=== PATIENT | female | born 1995 | race Caucasian/White ===

== ENCOUNTER 2016-05-02 15:53 | Emergency (ER) | payer OTHER ==
--- NOTE | 2016-05-02 16:43 | ED ORDER SUMMARY ---
..... Patient: ERIKA GILL OrderSheet [facility] VisitID: [id number] [address] [place] [address] 20y, F Registration Date/Time: 05/02/2016 ORDER SHEET Weight: 94.8 kg (stated) Allergies: None GENERAL ORDERS: MEDICATION ORDERS: Dilaudid IM 1 mg (HIGH ALERT MEDICATION, NOW) (16:11 05/02/2016 Savita BRIONES) (Ack 16:11 RMarsden R.N.) (16:29 RMarsden R.N.) Phenergan IM 25 mg (HIGH ALERT MEDICATION, NOW) (16:11 05/02/2016 anastasiia BRIONES) (Ack 16:11 RMarsden R.N.) (16:29 RMarsden R.N.) Solu-MEDROL IM 125 mg (NOW) (16:12 05/02/2016 anastasiia BRIONES) (Ack 16:13 RMarsden R.N.) (16:30 RMarsden R.N.) IV FLUIDS: ORDER SHEET NOTES: [Electronically signed by Audra Lanier R.N. (19:04 05/02/2016)] [Electronically signed by Man Fernandez DO (22:04 05/02/2016)] [Electronically locked/signed by Audra Lanier R.N. (19:04 05/02/2016)]
--- NOTE | 2016-05-02 16:43 | ED CLINICAL REPORT ---
Clinical Report - Physicians/Mid Levels [facility] [address] [place] [address] 05/02/2016 15:54 Patient: ERIKA GILL Time Seen: 15:56. Arrived- By private vehicle. Historian- patient and mother. HISTORY OF PRESENT ILLNESS Chief Complaint: SORE THROAT. Post tonsillectomy pain. This started today and is still present. It was gradual in onset and has been waxing/waning. Pain described as severe. The patient has had a sore throat (states hurts too much to swallow pills) with pain upon swallowing. Similar symptoms previously: Recent medical care: The patient was seen recently by a health care provider (had tonsillectomy). REVIEW OF SYSTEMS No fever, cough, difficulty breathing, chest pain or nausea. No diarrhea, abdominal pain, difficulty with urination, headache or fainting episodes. No joint pain, skin rash or vomiting. Denies current . All systems otherwise negative, except as recorded above. PAST HISTORY Strep throat. Bronchitis. Urinary tract infection. Surgeries: Tonsillectomy. Medications: Anti nausea. Antibiotic. OxyCODONE HCl Oral. Allergies: None. SOCIAL HISTORY Never smoker. History of drug use: marijuana. No alcohol use. Is a local resident. ADDITIONAL NOTES The nursing notes have been reviewed. PHYSICAL EXAM Vital Signs: 05/02/2016 15:59 BP: 108/63. HR: 57. RR: 16. O2 saturation: 96%. Temp: 98.3 F. Pain level now: 7/10. Appearance: Alert. Patient in moderate distress. Head: Normal external inspection. Eyes: Conjunctivae and eyelids normal. ENT: Nose normal. Pharyngeal erythema (with post tonsillectomy changes with uvular swelling). Lips normal. Gums normal. No trismus present. Uvula midline. No peritonsillar mass, muffled or hoarse voice or drooling. Neck: Normal inspection. Trachea midline. Neck supple. CVS: Normal heart rate and rhythm. Heart sounds normal. Pulses normal. Respiratory: No respiratory distress. Abdomen: Soft and nontender. No organomegaly. Skin: Normal skin color. No rash. Normal skin turgor. Extremities: Extremities exhibit normal ROM. Extremities nontender. Neuro: Oriented X 3. No motor deficit. LABS, X-RAYS, AND EKG Pulse Oximetry: 05/02/2016 15:59 O2 saturation: 96%. (FIO2 - room air). Interpretation: normal. PROGRESS AND PROCEDURES Course of Care: Solu-Medrol 125mg IM given. Dilaudid 1 mg with Phenergan 25 mg IM given. Patient is stable. Symptoms better. Patient/family counseled. Old ED records reviewed. Disposition: Discharged. Condition: stable and improved. CLINICAL IMPRESSION Chronic substance abuse- marijuana with anxiety. Odynophagia - secondary to tonsillectomy. INSTRUCTIONS Drink plenty of fluids. (Please take your oxycodone pills OR the Lortab elixir, but not both at the same time ( by at least 4 - 6 hours)). Warnings: Further evaluation is necessary. It is very important to follow up with a physician. SEDATIVE MEDICATION: You were given sedative medication during your visit. Do not drive or operate dangerous machinery. CONTROLLED SUBSTANCE WARNINGS. GENERAL WARNINGS: Return or contact your physician immediately if your condition worsens or changes unexpectedly, if not improving as expected, or if other problems arise. Your Current Medications: CONTINUE TAKING THE FOLLOWING MEDICATIONS: Anti nausea*. Antibiotic*. OxyCODONE HCl Oral. Prescription Medications: Lortab Elixir 10 mg / 300 mg / 15 mL: take one and a half (1.5) teaspoons orally every 8 hours as needed for pain. Dispense seventy-five (75) mL. No refill. Substitution is permissible. Follow-up: Follow up with an ear, nose and throat physician (an marble mechanic helper) tomorrow. (Electronically signed by Man Fernandez DO 05/02/2016 22:04)
--- NOTE | 2016-05-02 16:43 | ED CLINICAL REPORT ---
Clinical Report - Physicians/Mid Levels [facility] [address] [place] [address] 05/02/2016 15:54 Patient: ERIKA GILL Time Seen: 15:56. Arrived- By private vehicle. Historian- patient and mother. HISTORY OF PRESENT ILLNESS Chief Complaint: SORE THROAT. Post tonsillectomy pain. This started today and is still present. It was gradual in onset and has been waxing/waning. Pain described as severe. The patient has had a sore throat (states hurts too much to swallow pills) with pain upon swallowing. Similar symptoms previously: Recent medical care: The patient was seen recently by a health care provider (had tonsillectomy). REVIEW OF SYSTEMS No fever, cough, difficulty breathing, chest pain or nausea. No diarrhea, abdominal pain, difficulty with urination, headache or fainting episodes. No joint pain, skin rash or vomiting. Denies current . All systems otherwise negative, except as recorded above. PAST HISTORY Strep throat. Bronchitis. Urinary tract infection. Surgeries: Tonsillectomy. Medications: Anti nausea. Antibiotic. OxyCODONE HCl Oral. Allergies: None. SOCIAL HISTORY Never smoker. History of drug use: marijuana. No alcohol use. Is a local resident. ADDITIONAL NOTES The nursing notes have been reviewed. PHYSICAL EXAM Vital Signs: 05/02/2016 15:59 BP: 108/63. HR: 57. RR: 16. O2 saturation: 96%. Temp: 98.3 F. Pain level now: 7/10. Appearance: Alert. Patient in moderate distress. Head: Normal external inspection. Eyes: Conjunctivae and eyelids normal. ENT: Nose normal. Pharyngeal erythema (with post tonsillectomy changes with uvular swelling). Lips normal. Gums normal. No trismus present. Uvula midline. No peritonsillar mass, muffled or hoarse voice or drooling. Neck: Normal inspection. Trachea midline. Neck supple. CVS: Normal heart rate and rhythm. Heart sounds normal. Pulses normal. Respiratory: No respiratory distress. Abdomen: Soft and nontender. No organomegaly. Skin: Normal skin color. No rash. Normal skin turgor. Extremities: Extremities exhibit normal ROM. Extremities nontender. Neuro: Oriented X 3. No motor deficit. LABS, X-RAYS, AND EKG Pulse Oximetry: 05/02/2016 15:59 O2 saturation: 96%. (FIO2 - room air). Interpretation: normal. PROGRESS AND PROCEDURES Course of Care: Solu-Medrol 125mg IM given. Dilaudid 1 mg with Phenergan 25 mg IM given. Patient is stable. Symptoms better. Patient/family counseled. Old ED records reviewed. Disposition: Discharged. Condition: stable and improved. CLINICAL IMPRESSION Chronic substance abuse- marijuana with anxiety. Odynophagia - secondary to tonsillectomy. INSTRUCTIONS Drink plenty of fluids. (Please take your oxycodone pills OR the Lortab elixir, but not both at the same time ( by at least 4 - 6 hours)). Warnings: Further evaluation is necessary. It is very important to follow up with a physician. SEDATIVE MEDICATION: You were given sedative medication during your visit. Do not drive or operate dangerous machinery. CONTROLLED SUBSTANCE WARNINGS. GENERAL WARNINGS: Return or contact your physician immediately if your condition worsens or changes unexpectedly, if not improving as expected, or if other problems arise. Your Current Medications: CONTINUE TAKING THE FOLLOWING MEDICATIONS: Anti nausea*. Antibiotic*. OxyCODONE HCl Oral. Prescription Medications: Lortab Elixir 10 mg / 300 mg / 15 mL: take one and a half (1.5) teaspoons orally every 8 hours as needed for pain. Dispense seventy-five (75) mL. No refill. Substitution is permissible. Follow-up: Follow up with an ear, nose and throat physician (an head silverman) tomorrow. (Electronically signed by Man Fernandez DO 05/02/2016 22:04)
--- NOTE | 2016-05-02 16:43 | ED NURSING NOTES ---
Clinical Report - Nurses [facility] [address] [place] [address] 05/02/2016 15:54 Patient: ERIKA GILL TRIAGE Triage time 15:59. Acuity: LEVEL 4. Chief Complaint: SORE THROAT. 16:08 05/02/16. Alert. No acute distress. SEPSIS SCREEN: Sepsis Screen. Negative (no infection suspected/documented). WANDA COMA SCORE: Wanda Coma Scale: 15- eyes open spontaneously (4); best verbal response- oriented x 4 (5); best motor response- obeys commands (6). --16:09 Audra Lanier R.N. 15:59 05/02/16. BP: 108/63. HR: 57. RR: 16. O2 saturation: 96%. Temp: 98.3 F. Pain level now: 08/21. --16:09 Audra Lanier R.N. <<STRICKEN ENTRY-- 15:59 05/02/16. BP: 95/54. HR: 57. RR: 16. O2 saturation: 96%. Temp: 98.3 F. Pain level now: 08/21. --16:09 Audra Lanier R.N. --END STRIKE>> Change to Details. --16:10 Audra Lanier R.N. Weight: 94.8 kg stated. Height/Length: 64 inches. BMI: 35.9. --16:05 Audra Lanier R.N. Medications OxyCODONE HCl Oral. --16:03 Audra Lanier R.N. Antibiotic. --16:03 Audra Lanier R.N. Anti nausea. --16:03 Audra Lanier R.N. Allergies None. --16:03 Audra Lanier R.N. History Historian: patient and family. Primary physician (Timmy). This started yesterday. ( Patient states she had a tonsillectomy yesterday.). PAST MEDICAL HX: Last normal menstrual period- 2 weeks ago. Denies current . SOCIAL HX: Never smoker. History of heavy drug use: marijuana. No alcohol use. FALL RISK ASSESSMENT: Fall risk assessment completed. No fall risk identified. NUTRITIONAL RISK ASSESSMENT: The nutritional risk assessment revealed no deficiencies. FUNCTIONAL ASSESSMENT: Functional assessment: no impairments noted. LEARNING NEEDS ASSESSMENT: The learning needs assessment revealed no barriers. SKIN INTEGRITY ASSESSMENT: Skin integrity risk assessment completed. No skin integrity risk identified. --16:09 Audra Lanier R.N. PROBLEMS: Bronchitis. Foreign Body, Vagina. Tonsillitis. Sprain. Tetanus Status. UTI - Urinary Tract Infection. Immunizations. LNMP - Last Normal Menstrual Period. --16:02 Audra Lanier R.N. ADDITIONAL SURGERIES: Tonsillectomy. --16:02 Audra Lanier R.N. Interventions ID band on patient. To treatment room. --16: Audra Lanier R.N. PHYSICAL ASSESSMENT 16:05/02/16. GENERAL / NEURO / PSYCH: Alert. Oriented X 4. Appears in no acute distress. HEENT: Voice within normal limits. Mucous membranes are pink. RESPIRATORY: Respirations not labored. CVS: Capillary refill less than 2 seconds. SKIN: Skin is warm and dry. --16:09 Audra Lanier R.N. NURSING PROGRESS NOTES 16:05/02/16. Two patient identifiers checked. Call light placed in reach. Side rails up x 1. Bed placed in lowest position. Brakes of bed on. Patient ready for evaluation- chart flagged and notification provided. ( Dr Fernandez in room 16:00). --16:11 Audra Lanier R.N. 16:26 05/02/2016 Dilaudid (HYDROmorphone HCl PF) IM 1 mg given. Given in the right anterior lateral thigh. Allergies verified, confirmed 5 rights and sedative warning given to the patient. --16:29 Audra Lanier R.N. 16:29 05/02/2016 Phenergan (Promethazine HCl) IM 25 mg given. Given in the right anterior lateral thigh. Allergies verified, confirmed 5 rights and sedative warning given to the patient. --16:29 Audra Lanier R.N. 16:30 05/02/2016 Solu-Medrol (MethylPREDNISolone Sodium Succ) IM 125 mg given. Given in the left anterior lateral thigh. Allergies verified and confirmed 5 rights. --16:30 Audra Lanier R.N. DISPOSITION / DISCHARGE 16:53 05/02/16. No learning barriers present. Discharge instructions provided and reviewed with the patient and parent. Reviewed warnings. Reviewed medication(s). Treatments reviewed. Reviewed diet. Parent verbalized understanding. The patient was discharged by the physician. She was discharged home and accompanied by parent. She left the Emergency Department ambulatory and via private vehicle. Parent driving. --16:53 Audra Lanier R.N. 15:59 05/02/16. BP: 108/63. HR: 57. RR: 16. O2 saturation: 96%. Temp: 98.3 F. Pain level now: 08/21. --16:53 Audra Lanier R.N. 16:53 05/02/16. Departure time: 04:53. --16:53 Audra Lanier R.N. Locked/Released at 05/02/2016 19:04 by Audra Lanier R.N.
--- NOTE | 2016-05-02 16:43 | ED ORDER SUMMARY ---
..... Patient: ERIKA GILL OrderSheet [facility] VisitID: [id number] [address] [place] [address] 20y, F Registration Date/Time: 05/02/2016 ORDER SHEET Weight: 94.8 kg (stated) Allergies: None GENERAL ORDERS: MEDICATION ORDERS: Dilaudid IM 1 mg (HIGH ALERT MEDICATION, NOW) (16:11 05/02/2016 Savita BRIONES) (Ack 16:11 RMarsden R.N.) (16:29 RMarsden R.N.) Phenergan IM 25 mg (HIGH ALERT MEDICATION, NOW) (16:11 05/02/2016 naastasiia BRIONES) (Ack 16:11 RMarsden R.N.) (16:29 RMarsden R.N.) Solu-MEDROL IM 125 mg (NOW) (16:12 05/02/2016 anastasiia BRIONES) (Ack 16:13 RMarsden R.N.) (16:30 RMarsden R.N.) IV FLUIDS: ORDER SHEET NOTES: [Electronically signed by Audra Lanier R.N. (19:04 05/02/2016)] [Electronically signed by Man Fernandez DO (22:04 05/02/2016)] [Electronically locked/signed by Audra Lanier R.N. (19:04 05/02/2016)]
--- NOTE | 2016-05-02 22:05 | ED MAR SUMMARY ---
..... Medication Administration Record [facility] [address] [place] [address] Patient: ERIKA GILL Visit ID: [id number] 20y, F Weight: 94.8 kg Height/Length: 64 in BMI: 35.9 ALLERGIES: None Given 16:26 05/02/2016 Audra Lanier RMarsNMars Medication Administered: DILAUDID [IM] (HYDROMORPHONE HCL PF), Dose: 1 mg IM. Medication Ordered: Dilaudid IM 1 mg (HIGH ALERT MEDICATION, NOW). Given 16:29 05/02/2016 Audra Lanier RMarsNMars Medication Administered: PHENERGAN [IM] (PROMETHAZINE HCL), Dose: 25 mg IM. Medication Ordered: Phenergan IM 25 mg (HIGH ALERT MEDICATION, NOW). Given 16:30 05/02/2016 Audra Lanier, RMarsN. Medication Administered: SOLU-MEDROL [IM] (METHYLPREDNISOLONE SODIUM SUCC), Dose: 125 mg IM. Medication Ordered: Solu-MEDROL IM 125 mg (NOW).
--- NOTE | 2016-05-02 22:05 | ED MAR SUMMARY ---
..... Medication Administration Record [address] [place] [address] Patient: ERIKA GILL Visit ID: [id number] 20y, F Weight: 94.8 kg Height/Length: 64 in BMI: 35.9 ALLERGIES: None Given 16:26 05/02/2016 Audra Lanier RMarsNMars Medication Administered: DILAUDID [IM] (HYDROMORPHONE HCL PF), Dose: 1 mg IM. Medication Ordered: Dilaudid IM 1 mg (HIGH ALERT MEDICATION, NOW). Given 16:29 05/02/2016 Audra Lanier RMarsNMars Medication Administered: PHENERGAN [IM] (PROMETHAZINE HCL), Dose: 25 mg IM. Medication Ordered: Phenergan IM 25 mg (HIGH ALERT MEDICATION, NOW). Given 16:30 05/02/2016 Audra Lanier, RMarsN. Medication Administered: SOLU-MEDROL [IM] (METHYLPREDNISOLONE SODIUM SUCC), Dose: 125 mg IM. Medication Ordered: Solu-MEDROL IM 125 mg (NOW).
--- NOTE | 2016-05-02 22:05 | ED DISCHARGE INSTRUCTIONS ---
Patient: ERIKA GILL General Instructions [facility] VisitID: [id number] [place] [address] 20y, F Registration Date/Time: 05/02/2016 Chronic substance abuse- marijuana with anxiety. Odynophagia - secondary to tonsillectomy. INSTRUCTIONS Drink plenty of fluids. (Please take your oxycodone pills OR the Lortab elixir, but not both at the same time ( by at least 4 - 6 hours)). Warnings: Further evaluation is necessary. It is very important to follow up with a physician. SEDATIVE MEDICATION: You were given sedative medication during your visit. Do not drive or operate dangerous machinery. CONTROLLED SUBSTANCE WARNINGS. GENERAL WARNINGS: Return or contact your physician immediately if your condition worsens or changes unexpectedly, if not improving as expected, or if other problems arise. Your Current Medications: CONTINUE TAKING THE FOLLOWING MEDICATIONS: Anti nausea*. Antibiotic*. OxyCODONE HCl Oral. Prescription Medications: Lortab Elixir 10 mg / 300 mg / 15 mL: take one and a half (1.5) teaspoons orally every 8 hours as needed for pain. Dispense seventy-five (75) mL. No refill. Substitution is permissible. Follow-up: Follow up with an ear, nose and throat physician (an auction block clerk) tomorrow. ADDITIONAL INFORMATION Hydrocodone Bitartrate, Acetaminophen Oral solution What is this medicine? ACETAMINOPHEN; HYDROCODONE (a set a JIMENEZ angela fen; eduardo droe KOE done) is a pain reliever. It is used to treat mild to moderate pain. How should I use this medicine? Take this medicine by mouth. Use a specially marked spoon or dropper to measure your dose. Ask your pharmacist if you do not have a dropper or measuring spoon. Do not use a household spoon. Follow the directions on the prescription label. If the medicine upsets your stomach, take it with food or milk. Do not take more medicine than you are told to take. Talk to your cylinder block hole reliner regarding the use of this medicine in children. This medicine is not approved for use in children. What side effects may I notice from receiving this medicine? Side effects that you should report to your doctor or health ambulatory care coordinator as soon as possible: allergic reactions like skin rash, itching or hives, swelling of the face, lips, or tongue breathing problems confusion feeling faint or lightheaded, falls stomach pain yellowing of the eyes or skin Side effects that usually do not require medical attention (report to your doctor or health ambulatory care coordinator if they continue or are bothersome): nausea, vomiting stomach upset What may interact with this medicine? alcohol antihistamines isoniazid medicines for depression, anxiety, or psychotic disturbances medicines for sleep muscle relaxants naltrexone narcotic medicines (opiates) for pain phenobarbital ritonavir tramadol What if I miss a dose? If you miss a dose, take it as soon as you can. If it is almost time for your next dose, take only that dose. Do not take double or extra doses. Where should I keep my medicine? Keep out of the reach of children. This medicine can be abused. Keep your medicine in a safe place to protect it from theft. Do not share this medicine with anyone. Selling or giving away this medicine is dangerous and against the law. Store at room temperature between 20 and 25 degrees C (68 and 77 degrees F). Protect from light. Keep container tightly closed. Throw away any unused medicine after the expiration date. Discard unused medicine and used packaging carefully. Pets and children can be harmed if they find used or lost packages. What should I tell my health care provider before I take this medicine? They need to know if you have any of these conditions: brain tumor Crohn's disease, inflammatory bowel disease, or ulcerative colitis drink more than 3 alcohol-containing drinks per day drug abuse or addiction head injury heart or circulation problems kidney disease or problems going to the bathroom liver disease lung disease, asthma, or breathing problems an unusual or allergic reaction to acetaminophen, hydrocodone, other opioid analgesics, other medicines, foods, dyes, or preservatives or trying to get breast-feeding What should I watch for while using this medicine? Tell your doctor or health ambulatory care coordinator if your pain does not go away, if it gets worse, or if you have new or a different type of pain. You may develop tolerance to the medicine. Tolerance means that you will need a higher dose of the medicine for pain relief. Tolerance is normal and is expected if you take this medicine for a long time. Do not suddenly stop taking your medicine because you may develop a severe reaction. Your body becomes used to the medicine. This does NOT mean you are addicted. Addiction is a behavior related to getting and using a drug for a non-medical reason. If you have pain, you have a medical reason to take pain medicine. Your doctor will tell you how much medicine to take. If your doctor wants you to stop the medicine, the dose will be slowly lowered over time to avoid any side effects. You may get drowsy or dizzy when you first start taking the medicine or change doses. Do not drive, use machinery, or do anything that may be dangerous until you know how the medicine affects you. Stand or sit up slowly. There are different types of narcotic medicines (opiates) for pain. If you take more than one type at the same time, you may have more side effects. Give your health care provider a list of all medicines you use. Your doctor will tell you how much medicine to take. Do not take more medicine than directed. Call emergency for help if you have problems breathing. The medicine will cause constipation. Try to have a bowel movement at least every 2 to 3 days. If you do not have a bowel movement for 3 days, call your doctor or health ambulatory care coordinator. Too much acetaminophen can be very dangerous. Do not take Tylenol (acetaminophen) or medicines that contain acetaminophen with this medicine. Many non-prescription medicines contain acetaminophen. Always read the labels carefully. You have been given the following additional information: Hydrocodone Bitartrate, Acetaminophen Oral solution (Electronically signed by Man Fernandez DO 05/02/2016 22:04)
--- NOTE | 2016-05-02 22:05 | ED MED RECONCILIATION SUMMARY ---
Patient: ERIKA GILL Medication Reconciliation Report [facility] VisitID: [id number] [address] [place] [address] 20y, F Registration Date/Time: 05/02/2016 Weight: 94.8 kg Height/Length: 64 in. BMI: 35.9 ALLERGIES: None The patient's Home Medications are listed below: CONTINUE TAKING THE FOLLOWING MEDICATIONS: Anti nausea Antibiotic OxyCODONE HCl Oral The source(s) of the original Home Medication information: Not obtained. The following Medications were given to the patient in the Emergency Department: Dilaudid [IM] IM 1 mg, administered: 05/02/2016 4:26:00 PM Phenergan [IM] IM 25 mg, administered: 05/02/2016 4:29:00 PM Solu-Medrol [IM] IM 125 mg, administered: 05/02/2016 4:30:00 PM The following Medications were prescribed to the patient: Lortab Elixir 10 mg / 300 mg / 15 mL: take one and a half (1.5) teaspoons orally every 8 hours as needed for pain. Dispense seventy-five (75) mL. No refill. Substitution is permissible. -- Man Fernandez,
--- NOTE | 2016-05-02 22:05 | ED MED RECONCILIATION SUMMARY ---
Patient: ERIKA GILL Medication Reconciliation Report [facility] VisitID: [id number] [address] [place] [address] 20y, F Registration Date/Time: 05/02/2016 Weight: 94.8 kg Height/Length: 64 in. BMI: 35.9 ALLERGIES: None The patient's Home Medications are listed below: CONTINUE TAKING THE FOLLOWING MEDICATIONS: Anti nausea Antibiotic OxyCODONE HCl Oral The source(s) of the original Home Medication information: Not obtained. The following Medications were given to the patient in the Emergency Department: Dilaudid [IM] IM 1 mg, administered: 05/02/2016 4:26:00 PM Phenergan [IM] IM 25 mg, administered: 05/02/2016 4:29:00 PM Solu-Medrol [IM] IM 125 mg, administered: 05/02/2016 4:30:00 PM The following Medications were prescribed to the patient: Lortab Elixir 10 mg / 300 mg / 15 mL: take one and a half (1.5) teaspoons orally every 8 hours as needed for pain. Dispense seventy-five (75) mL. No refill. Substitution is permissible. -- Man Fernandez,
--- NOTE | 2016-05-02 22:05 | ED DISCHARGE INSTRUCTIONS ---
Patient: ERIKA GILL General Instructions [facility] VisitID: [id number] [place] [address] 20y, F Registration Date/Time: 05/02/2016 Chronic substance abuse- marijuana with anxiety. Odynophagia - secondary to tonsillectomy. INSTRUCTIONS Drink plenty of fluids. (Please take your oxycodone pills OR the Lortab elixir, but not both at the same time ( by at least 4 - 6 hours)). Warnings: Further evaluation is necessary. It is very important to follow up with a physician. SEDATIVE MEDICATION: You were given sedative medication during your visit. Do not drive or operate dangerous machinery. CONTROLLED SUBSTANCE WARNINGS. GENERAL WARNINGS: Return or contact your physician immediately if your condition worsens or changes unexpectedly, if not improving as expected, or if other problems arise. Your Current Medications: CONTINUE TAKING THE FOLLOWING MEDICATIONS: Anti nausea*. Antibiotic*. OxyCODONE HCl Oral. Prescription Medications: Lortab Elixir 10 mg / 300 mg / 15 mL: take one and a half (1.5) teaspoons orally every 8 hours as needed for pain. Dispense seventy-five (75) mL. No refill. Substitution is permissible. Follow-up: Follow up with an ear, nose and throat physician (an research investigator) tomorrow. ADDITIONAL INFORMATION Hydrocodone Bitartrate, Acetaminophen Oral solution What is this medicine? ACETAMINOPHEN; HYDROCODONE (a set a JIMENEZ angela fen; eduardo droe KOE done) is a pain reliever. It is used to treat mild to moderate pain. How should I use this medicine? Take this medicine by mouth. Use a specially marked spoon or dropper to measure your dose. Ask your pharmacist if you do not have a dropper or measuring spoon. Do not use a household spoon. Follow the directions on the prescription label. If the medicine upsets your stomach, take it with food or milk. Do not take more medicine than you are told to take. Talk to your front desk representative regarding the use of this medicine in children. This medicine is not approved for use in children. What side effects may I notice from receiving this medicine? Side effects that you should report to your doctor or health careers adviser as soon as possible: allergic reactions like skin rash, itching or hives, swelling of the face, lips, or tongue breathing problems confusion feeling faint or lightheaded, falls stomach pain yellowing of the eyes or skin Side effects that usually do not require medical attention (report to your doctor or health careers adviser if they continue or are bothersome): nausea, vomiting stomach upset What may interact with this medicine? alcohol antihistamines isoniazid medicines for depression, anxiety, or psychotic disturbances medicines for sleep muscle relaxants naltrexone narcotic medicines (opiates) for pain phenobarbital ritonavir tramadol What if I miss a dose? If you miss a dose, take it as soon as you can. If it is almost time for your next dose, take only that dose. Do not take double or extra doses. Where should I keep my medicine? Keep out of the reach of children. This medicine can be abused. Keep your medicine in a safe place to protect it from theft. Do not share this medicine with anyone. Selling or giving away this medicine is dangerous and against the law. Store at room temperature between 20 and 25 degrees C (68 and 77 degrees F). Protect from light. Keep container tightly closed. Throw away any unused medicine after the expiration date. Discard unused medicine and used packaging carefully. Pets and children can be harmed if they find used or lost packages. What should I tell my health care provider before I take this medicine? They need to know if you have any of these conditions: brain tumor Crohn's disease, inflammatory bowel disease, or ulcerative colitis drink more than 3 alcohol-containing drinks per day drug abuse or addiction head injury heart or circulation problems kidney disease or problems going to the bathroom liver disease lung disease, asthma, or breathing problems an unusual or allergic reaction to acetaminophen, hydrocodone, other opioid analgesics, other medicines, foods, dyes, or preservatives or trying to get breast-feeding What should I watch for while using this medicine? Tell your doctor or health careers adviser if your pain does not go away, if it gets worse, or if you have new or a different type of pain. You may develop tolerance to the medicine. Tolerance means that you will need a higher dose of the medicine for pain relief. Tolerance is normal and is expected if you take this medicine for a long time. Do not suddenly stop taking your medicine because you may develop a severe reaction. Your body becomes used to the medicine. This does NOT mean you are addicted. Addiction is a behavior related to getting and using a drug for a non-medical reason. If you have pain, you have a medical reason to take pain medicine. Your doctor will tell you how much medicine to take. If your doctor wants you to stop the medicine, the dose will be slowly lowered over time to avoid any side effects. You may get drowsy or dizzy when you first start taking the medicine or change doses. Do not drive, use machinery, or do anything that may be dangerous until you know how the medicine affects you. Stand or sit up slowly. There are different types of narcotic medicines (opiates) for pain. If you take more than one type at the same time, you may have more side effects. Give your health care provider a list of all medicines you use. Your doctor will tell you how much medicine to take. Do not take more medicine than directed. Call emergency for help if you have problems breathing. The medicine will cause constipation. Try to have a bowel movement at least every 2 to 3 days. If you do not have a bowel movement for 3 days, call your doctor or health careers adviser. Too much acetaminophen can be very dangerous. Do not take Tylenol (acetaminophen) or medicines that contain acetaminophen with this medicine. Many non-prescription medicines contain acetaminophen. Always read the labels carefully. You have been given the following additional information: Hydrocodone Bitartrate, Acetaminophen Oral solution (Electronically signed by Mna Fernandez DO 05/02/2016 22:04)
== END 2016-05-02 16:53 | disposition home or self-care (01) ==
LOC: ED SRH 15:53
DX: G89.18 Other acute postprocedural pain (principal); R13.10 Dysphagia, unspecified; F12.10 Cannabis abuse, uncomplicated; F41.9 Anxiety disorder, unspecified